=== PATIENT | female | born 1950 | race African-American/Black ===

== ENCOUNTER 2021-02-04 01:33 | Emergency (ER) | payer MEDICARE, MEDICAID ==
[~2021-02-04] VITALS: Ht 172.7 cm; Wt 86.0 kg
[2021-02-04] MEDS ORDERED: TETANUS, DIPHTHERIA, PERTUSSIS VAC/PF 0.5ML (>10YR OLD) IM ONE (02:15)
[2021-02-04 05:20] VITALS: BP 144/80
== END 2021-02-04 05:20 | disposition home or self-care (01) ==
LOC: ER 01:33
DX: S00.83XA Contusion of other part of head, initial encounter (principal); W18.30XA Fall on same level, unspecified, initial encounter; Y93.89 Activity, other specified; Y92.89 Other specified places as the place of occurrence of the external cause; Y99.8 Other external cause status
CPT/HCPCS: 82962; 90471; 90715; 99284

== ENCOUNTER 2023-08-03 18:50 | Emergency (ER) | payer MEDICARE, MEDICAID ==
[~2023-08-03] VITALS: Ht 162.6 cm; Wt 82.0 kg
[~2023-08-03 18:50] MED LIST: AMLO10TA80 MT; APIX5TAB MT; ASPI-1160 PO; BENA40TA91 MT; FURO40TA5 MT; LABE200T9 MT; TRAZ-251 MT
[2023-08-03 18:52] VITALS: O2SAT 98
[2023-08-03 21:23] VITALS: BP 165/99; PULSE 120; RESP 16; TEMP 98.6
[2023-08-03] MEDS ORDERED: MUPI15CR11 TP (21:50)
[2023-08-03] MEDS ORDERED: TOPUD MT (21:50)
== END 2023-08-04 03:20 | disposition home or self-care (01) ==
LOC: ER 18:50
DX: R60.9 Edema, unspecified (principal); F03.90 Unspecified dementia, unspecified severity, without behavioral disturbance, psychotic disturbance, mood disturbance, and anxiety; I10 Essential (primary) hypertension; Z86.73 Personal history of transient ischemic attack (TIA), and cerebral infarction without residual deficits; Z79.899 Other long term (current) drug therapy
CPT/HCPCS: 99283

== ENCOUNTER 2023-10-22 00:41 | Inpatient (IN) | payer MEDICARE, MEDICAID ==
[2023-10-22] VITALS (9 sets, daily range): BP systolic 78–147; BP diastolic 54–105; PULSE 96–142; RESP 16–46; TEMP 37.2252–37.89192; O2SAT 96–100
[~2023-10-22] VITALS: Ht 170.2 cm; Wt 98.6 kg
[~2023-10-22 00:41] MED LIST changes: +MUPI15CR11 TP; +TOPUD MT
[2023-10-22] MEDS: SODIUM CHLORIDE 0.9% 1000ML BAG (SEPSIS BOLUS) IV ONE (01:06)
[2023-10-22] MEDS: PIPERACILLIN/TAZO 3.375G/50ML 50 ML IV ONE (01:06)
[2023-10-22 01:13] LABS: EOSINOPHILS % 0.9 % (0.0-5.0); HEMATOCRIT. 35.8 % (36.0-48.0); HEMOGLOBIN. 11.9 g/dL (12.0-16.0); LYMPHOCYTES % 24.3 % (20.0-50.0); MEAN CORPUSCULAR HGB CONC 33.2 g/dL (31.0-37.0); MEAN CORPUSCULAR VOLUME 96.3 fL (81.0-99.0); MEAN PLATELET VOLUME 7.8 fl (7.4-10.4); MONOCYTES % 8.8 % (2.0-8.0); PLATELET 316 x1000/uL (130-400); RED BLOOD CELL COUNT 3.72 mill/uL (4.2-5.4); WHITE BLOOD COUNT 6.2 x1000/uL (4.5-11.0)
[2023-10-22 01:19] LABS: CARBON DIOXIDE 25 mEq/L (21-32); CHLORIDE 103 mEq/L (98-107); SODIUM 142 mEq/L (136-145)
[2023-10-22 01:20] LABS: CALCIUM 9.7 mg/dL (8.7-10.4)
[2023-10-22 01:25] LABS: GLUCOSE 143 mg/dL (70-105); UREA NITROGEN BLOOD 11 mg/dL (9-23)
[2023-10-22 01:26] LABS: TROPONIN I HIGH SENSITIVITY 15 ng/L (3.0-34)
[2023-10-22 01:27] LABS: ALANINE AMINOTRANSFERASE 13 IU/L (10-49); ALBUMIN 4.3 g/dL (3.2-4.8); ASPARTATE AMINOTRANSFERASE 23 IU/L (<34); BILIRUBIN DIRECT 0.3 mg/dL (<=3.0); BILIRUBIN TOTAL 0.8 mg/dL (0.1-1.0); PROTEIN TOTAL 7.3 g/dL (6.0-8.3)
[2023-10-22 01:28] LABS: INR 1.2; PROTHROMBIN TIME 13.7 sec (9.6-11.0)
[2023-10-22 01:43] LABS: LACTIC ACID 6.4 mmol/L (0.4-2.0)
[2023-10-22 01:44] LABS: CREATININE 1.3 mg/dL (0.6-1.0); POTASSIUM 2.8 mEq/L (3.5-5.1)
[2023-10-22] MEDS: VANCOMYCIN 1G PREMIX 200 ML IV ONE (02:24)
[2023-10-22] MEDS ORDERED: MAGNESIUM/ALUMINUM HYDROXIDE/SIMETHICONE 30ML UDC PO PRN (02:45)
[2023-10-22] MEDS: POTASSIUM CHLORIDE 20MEQ/PACKET PO NR (02:45)
[2023-10-22] MEDS ORDERED: CLONIDINE 0.1MG TABLET PO PRN (02:45)
[2023-10-22] MEDS ORDERED: DOCUSATE SODIUM 100MG CAPSULE PO PRN (02:45)
[2023-10-22] MEDS ORDERED: IPRATROPIUM/ALBUTEROL 0.5-3(2.5)MG/3ML NEB HHN PRN (02:45)
[2023-10-22] MEDS ORDERED: ACETAMINOPHEN 325MG TABLET PO PRN (02:45)
[2023-10-22] MEDS ORDERED: GUAIFENESIN 200MG/10ML SUGAR FREE UDC PO PRN (02:45)
[2023-10-22] MEDS ORDERED: DEXTROSE 50% WATER 50ML SYRINGE IV PRN (03:15)
[2023-10-22 03:18] LABS: TROPONIN I HIGH SENSITIVITY 14 ng/L (3.0-34)
[2023-10-22] MEDS: VANCOMYCIN 750MG/150ML (BAXTER) IV NR (03:51)
[2023-10-22] MEDS: DEXT 5%/0.45% NACL 1000ML 1,000 ML IV SCH (04:00)
[2023-10-22] MEDS: KCL 20MEQ/100ML PREMIX 100 ML IV SCH (04:45)
[2023-10-22 06:01] LABS: CLARITY URINE TURBID (CLEAR); COLOR URINE DARK YELLOW (YELLOW); GLUCOSE URINE NEGATIVE (NEGATIVE); KETONES URINE NEGATIVE (NEGATIVE); LEUKOCYTE ESTERASE URINE TRACE (NEGATIVE); NITRITE URINE NEGATIVE (NEGATIVE); OCCULT BLOOD URINE NEGATIVE (NEGATIVE); PROTEIN URINE 1+ (NEGATIVE); SPECIFIC GRAVITY URINE 1.029 (1.005-1.030)
[2023-10-22 06:17] LABS: CREATINE KINASE 429 IU/L (34-145)
[2023-10-22 06:25] LABS: *AMPHETAMINES SCREEN URINE NEGATIVE (NEGATIVE); *BARBITURATES SCREEN URINE NEGATIVE (NEGATIVE); *BENZODIAZEPINES SCREEN URINE NEGATIVE (NEGATIVE); *COCAINE SCREEN URINE NEGATIVE (NEGATIVE); CANNABINOID URINE SCREEN NEGATIVE (NEGATIVE); ECSTASY MDMA SCREEN URINE NEGATIVE (NEGATIVE); METHADONE URINE SCREEN NEGATIVE (NEGATIVE); OPIATES URINE SCREEN PRESUMPTIVE POSITIVE (NEGATIVE); PHENCYCLIDINE URINE SCREEN NEGATIVE (NEGATIVE)
[2023-10-22 06:44] LABS: SQUAMOUS EPITHELIAL CELL URINE 3+ /lpf (RARE/1+)
[2023-10-22 06:47] LABS: BACTERIA URINE 2+; RBC URINE 0-2 /hpf (0-2)
[2023-10-22] MEDS ORDERED: PIPERACILLIN/TAZOBACTAM 3.375 G in DEXTROSE 5% WATER 50 ML IV SCH (08:00)
[2023-10-22] MEDS: INSULIN LISPRO 100 UNITS/ML SUBCUT SCH (08:20)
[2023-10-22] MEDS: BLOOD SUGAR DIAGNOSTIC STRIP TEST SCH (08:33)
[2023-10-22] MEDS ORDERED: RISP-29 PO (09:22)
[2023-10-22] MEDS ORDERED: APIX5TAB PO (09:31)
[2023-10-22] MEDS ORDERED: LEVO-65 PO (09:31)
[2023-10-22] MEDS ORDERED: MONT-39 PO (09:31)
[2023-10-22] MEDS ORDERED: LORA10TA7 PO (09:31)
[2023-10-22] MEDS ORDERED: ATOR40TA70 PO (09:31)
[2023-10-22] MEDS ORDERED: SULF1TAB48 MT (09:31)
[2023-10-22] MEDS ORDERED: FAMO20TA8 PO (09:31)
[2023-10-22] MEDS: PANTOPRAZOLE SODIUM 40 MG/VIAL IV SCH (09:53)
[2023-10-22] MEDS: ENOXAPARIN 100MG/ML SYR SUBCUT SCH (09:53)
[2023-10-22 10:31] LABS: PHOSPHORUS 3.4 mg/dL (2.5-4.9)
[2023-10-22] MEDS: SODIUM CHLORIDE 0.9% 500 ML IV ONE ×2 (12:10→13:00)
[2023-10-22 13:13] LABS: BG BASE EXCESS -3.2 mmol/L (-2.0-3.0); BG CARBOXYHEMOGLOBIN 0.3 % (0.5-1.5); BG DEOXYHEMOGLOBIN 2.5 % (0.0-5.0); BG FRACTION INSPIRED OXYGEN 21; BG HCO3 ACT 19.3 mmol/L (21.0-28.0); BG OXYGEN SATURATION 97.5 % (94.0-98.0); BG OXYHEMOGLOBIN 97.2 % (94.0-98.0); BG PCO2 26.6 mmHg (32.0-45.0); BG PH 7.478 (7.350-7.450); BG PO2 95.1 mmHg (83.0-108.0); BG SAMPLE SITE RIGHT RADIAL; BG TOTAL HEMOGLOBIN 10.2 g/dL (12.0-16.0); BG VENT MODE ROOM AIR
[2023-10-22 14:19] LABS: CREATINE KINASE 491 IU/L (34-145)
[2023-10-22] MEDS: MAGNESIUM 2 G PREMIX 50 ML IV NR (17:37)
[2023-10-22] MEDS: ASPIRIN 81MG TABLET PO SCH (17:37)
[2023-10-22] MEDS: ACETAMINOPHEN 325MG TABLET PO PRN (17:38)
[2023-10-22] MEDS: PIPERACILLIN/TAZO 3.375G/50ML 50 ML IV SCH (18:48)
[2023-10-22] MEDS: APIXABAN 5 MG TABLET PO SCH (20:24)
[2023-10-22] MEDS: ATORVASTATIN CALCIUM 40MG TABLET PO SCH (20:24)
[2023-10-23] VITALS (15 sets, daily range): BP systolic 90–145; BP diastolic 55–130; PULSE 75–167; RESP 16–42; TEMP 36.83628–37.66968; O2SAT 96–100
[2023-10-23] MEDS: VANCOMYCIN 1G PREMIX 200 ML IV SCH (03:27)
[2023-10-23 06:20] LABS: CARBON DIOXIDE 24 mEq/L (21-32); CHLORIDE 109 mEq/L (98-107); SODIUM 141 mEq/L (136-145)
[2023-10-23 06:21] LABS: CALCIUM 8.1 mg/dL (8.7-10.4)
[2023-10-23 06:25] LABS: CREATININE 0.8 mg/dL (0.6-1.0); FERRITIN 298 ng/mL (10-291); GLUCOSE 123 mg/dL (70-105); IRON 21 ug/dL (50-170)
[2023-10-23 06:26] LABS: FOLIC ACID (FOLATE) SERUM 4.15 ng/mL (>5.38); LDL CHOLESTEROL 36 mg/dL (5-100); TRIGLYCERIDE 71 mg/dL (0-150); UREA NITROGEN BLOOD 11 mg/dL (9-23)
[2023-10-23 06:27] LABS: ALANINE AMINOTRANSFERASE 10 IU/L (10-49); ALBUMIN 3.1 g/dL (3.2-4.8); ASPARTATE AMINOTRANSFERASE 24 IU/L (<34); PREALBUMIN 5.2 mg/dl (10.0-40.0)
[2023-10-23 06:28] LABS: BILIRUBIN TOTAL 0.5 mg/dL (0.1-1.0); CHOLESTEROL 96 mg/dL (<200); HDL CHOLESTEROL 39 mg/dL (>65); PHOSPHORUS 2.6 mg/dL (2.5-4.9); TOTAL IRON BINDING CAPACITY 193 ug/dl (250-425)
[2023-10-23 06:30] LABS: T4 FREE 1.46 ng/dL (0.89-1.76); THYROID STIMULATING HORMONE 1.32 uIU/mL (0.55-4.78)
[2023-10-23 06:33] LABS: BASOPHILS % 0.3 % (0.0-2.0); EOSINOPHILS % 5.6 % (0.0-5.0); HEMATOCRIT. 27.6 % (36.0-48.0); HEMOGLOBIN. 9.3 g/dL (12.0-16.0); LYMPHOCYTES % 11.6 % (20.0-50.0); MEAN CORPUSCULAR HEMOGLOBIN 32.6 pg (28.0-32.0); MEAN CORPUSCULAR HGB CONC 33.8 g/dL (31.0-37.0); MEAN CORPUSCULAR VOLUME 96.4 fL (81.0-99.0); MEAN PLATELET VOLUME 8.1 fl (7.4-10.4); MONOCYTES % 4.8 % (2.0-8.0); NEUTROPHILS % 77.7 % (40.0-76.0); PLATELET 231 x1000/uL (130-400); RED BLOOD CELL COUNT 2.86 mill/uL (4.2-5.4); RED CELL DISTRIBUTION WIDTH 14.4 % (11.6-14.6); WHITE BLOOD COUNT 8.5 x1000/uL (4.5-11.0)
[2023-10-23 06:53] LABS: PROTEIN TOTAL 5.2 g/dL (6.0-8.3)
[2023-10-23 06:55] LABS: POTASSIUM 2.4 mEq/L (3.5-5.1)
[2023-10-23] MEDS ORDERED: POTASSIUM CHLORIDE 40 MEQ in DEXT 5% WATER 230 ML IV ONE (07:30)
[2023-10-23] MEDS: POTASSIUM CHLORIDE 20MEQ/PACKET PO NR (08:39)
[2023-10-23] MEDS: KCL 20MEQ/100ML X 2 FOR TOTAL KCL 40MEQ/200ML IV SCH (09:51)
[2023-10-23] MEDS: ACETYLCYSTEINE 200MG/ML 20% VIAL 4ML INH SCH (12:42)
[2023-10-23] MEDS: IPRATROPIUM BROMIDE (0.02%) 0.5MG/2.5ML NEB HHN SCH (12:42)
[2023-10-23] MEDS: METOPROLOL TARTRATE 25MG TABLET PO SCH (14:00)
[2023-10-23 14:41] LABS: VITAMIN B12 SERUM 533 pg/mL (211-911)
[2023-10-23] MEDS: MULTIVITAMINS,THER W-MINERALS TABLET PO SCH (15:35)
[2023-10-23] MEDS: MONTELUKAST SODIUM 10MG TABLET PO SCH (17:07)
[2023-10-23 17:53] LABS: POTASSIUM 4.1 mEq/L (3.5-5.1)
[2023-10-23] MEDS: TRAZODONE HCL 50MG TABLET PO SCH (22:25)
[2023-10-23] MEDS: RISPERIDONE 1MG TABLET PO SCH (22:25)
[2023-10-24] VITALS (14 sets, daily range): BP systolic 103–203; BP diastolic 57–99; PULSE 78–112; RESP 0–46; TEMP 36.05844–37.00296; O2SAT 97–99
[2023-10-24 09:29] LABS: CHLORIDE 107 mEq/L (98-107); POTASSIUM 3.6 mEq/L (3.5-5.1); SODIUM 139 mEq/L (136-145)
[2023-10-24 09:30] LABS: CALCIUM 8.7 mg/dL (8.7-10.4); CARBON DIOXIDE 23 mEq/L (21-32)
[2023-10-24 09:35] LABS: CREATININE 0.7 mg/dL (0.6-1.0); GLUCOSE 100 mg/dL (70-105); UREA NITROGEN BLOOD 8 mg/dL (9-23)
[2023-10-24 09:46] LABS: BASOPHILS % 0.3 % (0.0-2.0); EOSINOPHILS % 9.8 % (0.0-5.0); HEMATOCRIT. 33.2 % (36.0-48.0); LYMPHOCYTES % 16.8 % (20.0-50.0); MEAN CORPUSCULAR HEMOGLOBIN 32.1 pg (28.0-32.0); MEAN CORPUSCULAR HGB CONC 33.4 g/dL (31.0-37.0); MEAN PLATELET VOLUME 7.9 fl (7.4-10.4); MONOCYTES % 5.6 % (2.0-8.0); NEUTROPHILS % 67.5 % (40.0-76.0); PLATELET 273 x1000/uL (130-400); RED BLOOD CELL COUNT 3.46 mill/uL (4.2-5.4); WHITE BLOOD COUNT 8.4 x1000/uL (4.5-11.0)
[2023-10-24 10:01] LABS: HEMOGLOBIN. 11.1 g/dL (12.0-16.0)
[2023-10-24] MEDS ORDERED: IOHEXOL-350 100 ML BOTTLE ONE (23:30)
[2023-10-25] VITALS (8 sets, daily range): BP systolic 116–153; BP diastolic 56–89; PULSE 75–103; RESP 17–23; TEMP 36.44736–36.78072; O2SAT 97–100
[2023-10-25] MEDS ORDERED: LABETALOL HCL 200MG TABLET PO SCH (09:00)
[2023-10-25] MEDS: FAMOTIDINE 20MG/2ML VIAL IV SCH (09:06)
[2023-10-25] MEDS: FUROSEMIDE 40MG TABLET PO SCH (09:15)
[2023-10-25] MEDS: AMLODIPINE 10MG TABLET PO SCH (09:15)
[2023-10-25] MEDS ORDERED: METO25TA6 PO (12:46)
[2023-10-25] MEDS ORDERED: SULF1TAB48 MT (12:52)
[2023-10-25] MEDS ORDERED: LEVO-65 MT (12:52)
== END 2023-10-25 19:14 | disposition home health service (06) | DRG 853 ==
LOC: ER 00:41 → 5EST 02:12 → EDBEDREQ 02:15
PROVIDERS: ADMIT Hospitalist; ATTEND Hospitalist
PROC: 0KBN0ZZ Excision of Right Hip Muscle, Open Approach (ICD-10-PCS; principal; 2023-10-23)
PROC: 0KBP0ZZ Excision of Left Hip Muscle, Open Approach (ICD-10-PCS; 2023-10-23)
DX: A41.9 Sepsis, unspecified organism (principal); G93.41 Metabolic encephalopathy; L89.154 Pressure ulcer of sacral region, stage 4; R65.21 Severe sepsis with septic shock; D64.9 Anemia, unspecified; E83.42 Hypomagnesemia; E87.6 Hypokalemia; F03.90 Unspecified dementia, unspecified severity, without behavioral disturbance, psychotic disturbance, mood disturbance, and anxiety; R73.9 Hyperglycemia, unspecified; I95.9 Hypotension, unspecified; Z96.651 Presence of right artificial knee joint; I48.0 Paroxysmal atrial fibrillation; I10 Essential (primary) hypertension; Z79.01 Long term (current) use of anticoagulants; I69.349 Monoplegia of lower limb following cerebral infarction affecting unspecified side; Z99.3 Dependence on wheelchair; Z86.718 Personal history of other venous thrombosis and embolism; Z79.82 Long term (current) use of aspirin; Z79.899 Other long term (current) drug therapy; Z74.01 Bed confinement status
CPT/HCPCS: 11043; 11046; 36415; 36600; 71045; 71275; 80048; 80053; 80061; 80076; 80202; 80305; 81003; 82375; 82550; 82607; 82728; 82746; 82805; 82962; 83036; 83540; 83550; 83605; 83735; 84100; 84132; 84134; 84145; 84439; 84443; 84484; 85025; 87106; 87804; 92610; 93005; 93306; 93970; 94640; 97110; 97162; 97166; 99291; A6261; J1650; J2470; J2543; J3370; J3475; J3480; J3490; J7030; J7608; Q9967